=== PATIENT | female | born 1950 | race Caucasian/White ===

== ENCOUNTER → 2017-02-03 | Outpatient (CLI) | payer MEDICARE, BC ==
[~2017-02-03] MED LIST: ALLEGRA30 MG PO; ATORVASTATIN; CELEXA40 MG; DITROPAN 5MG TAB5 MG; ESCITALOPRAM; GLUCOPHAGE500 MG/TAB PO; METFORMIN1000 MG PO; PREMARIN0.625 MG PO; PRILOSEC10 MG; PRINIVIL20 MG; ZOCOR 40MG40 MG
== END ==
LOC: COL.LAB 08:07
DX: Z96.651 Presence of right artificial knee joint (principal)

== ENCOUNTER 2020-12-23 10:22 | Emergency (ER) | payer MEDICARE, BC ==
[~2020-12-23] VITALS: Ht 172.7 cm; Wt 77.3 kg
[~2020-12-23 10:22] MED LIST changes: +ALLEGRA 180MG180 MG PO; +ASPIRIN 81M81 MG/TA2 PO; -CELEXA40 MG; +CELEXA40 MG PO; -DITROPAN 5MG TAB5 MG; +DITROPAN 5MG TAB5 MG PO; +LIPITOR 10MG10 MG PO; +PRILOSEC 20MG20 MG PO; -PRINIVIL20 MG; +PRINIVIL20 MG PO; +VITAMIN D31000 I1 PO
[2020-12-23 11:29] LABS: COLLECTION METHOD CLEAN CATCH
[2020-12-23 11:33] LABS: BASO % 0.3 % (0.0-2.0); EOS # 0.1 (0.0-0.7); GRAN # 9.7 (1.4-6.5); GRAN % 77.4 % (42.2-75.2); HEMATOCRIT 41.1 % (37.0-47.0); HEMOGLOBIN 13.5 g/dl (12.5-16.0); LYMPH # 1.9 (1.2-3.4); LYMPH % 14.8 % (20.0-51.0); MEAN CELL VOLUME 94 fl (80.0-100.0); MEAN CORPUSCULAR HEMOGLOBIN 31 pg (27.0-31.0); MEAN CORPUSCULAR HGB CONC 33 g/dl (33.0-37.0); MONO # 0.8 (0.1-0.6); MONO % 6.1 % (1.7-9.3); PLATELET COUNT 273 K/mm3 (130-400); RED BLOOD COUNT 4.36 M/mm3 (4.10-5.30); REDCELL DISTRIBUTION WIDTH-CV 13.4 % (11.5-14.5)
[2020-12-23 11:41] LABS: ALBUMIN 4.8 gm/dL (3.5-5.0); BILIRUBIN,TOTAL 0.4 mg/dL (0.0-1.0); CALCIUM 10.1 mg/dL (8.4-10.2); CREATININE, serum 0.71 (0.52-1.25); PH 6 (5-8); POTASSIUM 4.2 mmol/L (3.4-5.0); SQUAMOUS EPITHELIAL None Seen /hpf; TOTAL PROTEIN 8.2 gm/dL (6.4-8.2); URINE APPEARANCE Cloudy; URINE BACTERIA Moderate /hpf; URINE BILIRUBIN Negative (NEGATIVE); URINE BLOOD 3+ (NEGATIVE); URINE COLOR Yellow; URINE GLUCOSE Negative (NEGATIVE); URINE KETONE Negative (NEGATIVE); URINE LEUKOCYTE ESTERASE 3+ (NEGATIVE); URINE NITRATE Negative (NEGATIVE); URINE PROTEIN(semi-quant) 1+ (NEGATIVE); URINE RBC >50 /hpf; URINE UROBILINOGEN Negative (NEGATIVE)
[2020-12-23] MEDS ORDERED: CIPRO 500MG TA500 MG PO (11:57)
[2020-12-23] MEDS ORDERED: PYRIDIUM 100MG100 MG PO (11:57)
[2020-12-23 12:11] VITALS: BP 121/79; PULSE 108
== END 2020-12-23 12:19 | disposition home or self-care (01) ==
LOC: COL.ER 10:22
PROVIDERS: Emergency Medicine
DX: N30.01 Acute cystitis with hematuria (principal); E11.9 Type 2 diabetes mellitus without complications; I10 Essential (primary) hypertension; E78.5 Hyperlipidemia, unspecified; Z90.710 Acquired absence of both cervix and uterus; Z88.8 Allergy status to other drugs, medicaments and biological substances; Z88.1 Allergy status to other antibiotic agents; Z91.040 Latex allergy status; Z79.84 Long term (current) use of oral hypoglycemic drugs; Z79.82 Long term (current) use of aspirin

== ENCOUNTER → 2021-01-08 | Outpatient (CLI) | payer MEDICARE, BC ==
[~2021-01-08] MED LIST changes: +CIPRO 500MG TA500 MG PO; +PYRIDIUM 100MG100 MG PO
== END ==
LOC: COL.RAD 12:00
DX: R31.0 Gross hematuria (principal)

== ENCOUNTER → 2021-10-29 | Outpatient (RCR) | payer MEDICARE, BC | END | disposition still patient (30) | LOC: WSOT | DX: M79.641 Pain in right hand (principal) ==

== ENCOUNTER 2021-11-26 09:15 | Outpatient (RCR) | payer MEDICARE, BC | END 2021-11-29 | disposition home or self-care (01) | LOC: WSOT | DX: M79.641 Pain in right hand (principal) ==

== ENCOUNTER → 2022-10-24 | Outpatient (CLI) | payer MEDICARE, BC | LOC: MC.RAD 13:35 | DX: Z12.31 Encounter for screening mammogram for malignant neoplasm of breast (principal) ==